=== PATIENT | female | born 1930 | race Caucasian/White ===

== ENCOUNTER 2017-01-09 18:41 | Emergency (ER) | payer MEDICARE, OTHER ==
[~2017-01-09] VITALS: Ht 157.5 cm; Wt 54.7 kg
[2017-01-09 19:01] VITALS: BP 183/77
[2017-01-09] MEDS ORDERED: L.E.T SOLUTION TP ONE ×2 (19:30→19:33)
[2017-01-09] MEDS ORDERED: DIPH,PERTUSS(ACELL),TET VAC/PF 0.5 ML IM-VACC ONE ×2 (19:30→19:33)
== END 2017-01-09 20:32 | disposition home or self-care (01) ==
LOC: ED 20:24
DX: S61.211A Laceration without foreign body of left index finger without damage to nail, initial encounter (principal); W26.0XXA Contact with knife, initial encounter; Y93.89 Activity, other specified; Y92.89 Other specified places as the place of occurrence of the external cause; Y99.8 Other external cause status
CPT/HCPCS: 12001; 90471; 90715